=== PATIENT | female | born 1985 | race Caucasian/White ===

== ENCOUNTER 2016-10-13 04:21 | Inpatient (IN) | payer OTHER ==
[~2016-10-13] VITALS: Ht 162.6 cm; Wt 68.0 kg
[~2016-10-13 04:21] MED LIST: BIRTH CONTROL; LEVO50TA PO; PREN1TAB69 PO
[2016-10-13 04:27] VITALS: BP 131/79
[2016-10-13] MEDS ORDERED: TERBUTALINE 1 MG/ML, 1ML ONE (04:36)
[2016-10-13] MEDS ORDERED: LACTATED RINGERS 1,000 ML IV SCH ×2 (04:37→07:00)
[2016-10-13] MEDS ORDERED: TERBUTALINE 1 MG/ML, 1ML SQ ONE (05:00)
[2016-10-13 07:34] LABS: PATH.CAST-FLAG NOT PRESENT; SPERM-FLAG NOT PRESENT; SRC-FLAG NOT PRESENT; XTAL-FLAG NOT PRESENT; YLC-FLAG NOT PRESENT
[2016-10-13 07:45] VITALS: BP 110/63
[2016-10-13] MEDS ORDERED: NIFE10CA2 PO (07:50)
[2016-10-13] MEDS ORDERED: MAGNESIUM SULF. PMX 20GM/500ML 500 ML IV ONE ×3 (08:29→23:17)
[2016-10-13] MEDS ORDERED: BETAMETHASONE 6 MG/ML, 5ML IM ONE (08:29)
[2016-10-13] MEDS ORDERED: MAGNESIUM SULFATE PMX 4GM/100M 100 ML IVPB ONE (08:30)
[2016-10-13] MEDS: AMPICILLIN 2 GM in SODIUM CHLORIDE 0.9% 100 ML IV SCH ×3 (08:43→21:21)
[2016-10-13] MEDS ORDERED: AMPICILLIN 2 GM IVPB SCH (09:00)
[2016-10-13] MEDS ORDERED: INDOMETHACIN 50 MG CAPSULE PO ONE (09:00)
[2016-10-13] MEDS: MAGNESIUM SULF. PMX 20GM/500ML 500 ML IV SCH ×3 (09:09→23:20)
[2016-10-13] MEDS: BETAMETHASONE 6 MG/ML, 5ML IM SCH (09:17)
[2016-10-13] MEDS ORDERED: CALCIUM GLUCONATE 4.6 MEQ/10 ML IV PRN (14:00)
[2016-10-13] MEDS: INDOMETHACIN 25 MG CAPSULE PO SCH ×2 (14:51→21:21)
[2016-10-13] MEDS ORDERED: DOCUSATE 100 MG CAPSULE ONE (20:23)
[2016-10-13] MEDS: DOCUSATE 100 MG CAPSULE PO SCH (21:00)
[2016-10-14] MEDS: INDOMETHACIN 25 MG CAPSULE PO SCH ×4 (02:54→21:07)
[2016-10-14] MEDS: AMPICILLIN 2 GM in SODIUM CHLORIDE 0.9% 100 ML IV SCH (02:54)
[2016-10-14] MEDS: LEVOTHYROXINE 50 MCG TABLET PO SCH (06:43)
[2016-10-14 07:14] VITALS: BP 121/72
[2016-10-14] MEDS ORDERED: MAGNESIUM SULF. PMX 20GM/500ML 500 ML IV SCH (08:14)
[2016-10-14] MEDS ORDERED: PRENATAL VIT/IRON/FA 1 EACH TABLET ONE (08:45)
[2016-10-14] MEDS: DOCUSATE 100 MG CAPSULE PO SCH ×2 (08:49→21:07)
[2016-10-14] MEDS: PRENATAL VIT/IRON/FA 1 EACH TABLET PO SCH (08:49)
[2016-10-14] MEDS: BETAMETHASONE 6 MG/ML, 5ML IM SCH (08:50)
[2016-10-14] MEDS: LACTATED RINGERS 1,000 ML IV SCH (08:51)
[2016-10-14] MEDS: CEFAZOLIN PMX 2GM/50ML 50 ML IV SCH ×2 (09:52→17:03)
[2016-10-14] MEDS ORDERED: MAGNESIUM SULF. PMX 20GM/500ML 500 ML IV ONE (12:55)
[2016-10-14] MEDS: MAGNESIUM SULF. PMX 20GM/500ML 500 ML IV SCH (14:06)
[2016-10-14 20:01] VITALS: BP 117/65
[2016-10-14] MEDS ORDERED: DOCUSATE 100 MG CAPSULE ONE (21:05)
[2016-10-15] MEDS: LACTATED RINGERS 1,000 ML IV SCH (00:01)
[2016-10-15] MEDS: CEFAZOLIN PMX 2GM/50ML 50 ML IV SCH ×3 (00:45→16:25)
[2016-10-15] MEDS: INDOMETHACIN 25 MG CAPSULE PO SCH ×2 (03:01→08:26)
[2016-10-15] MEDS ORDERED: MAGNESIUM SULFATE PMX 2GM/50ML 50 ML ONE (03:41)
[2016-10-15] MEDS ORDERED: MAGNESIUM SULF. PMX 20GM/500ML 500 ML IV ONE ×2 (03:42→17:14)
[2016-10-15] MEDS: MAGNESIUM SULF. PMX 20GM/500ML 500 ML IV SCH ×2 (03:55→17:17)
[2016-10-15] MEDS: LEVOTHYROXINE 50 MCG TABLET PO SCH (06:02)
[2016-10-15] MEDS ORDERED: PRENATAL VIT/IRON/FA 1 EACH TABLET ONE (08:24)
[2016-10-15] MEDS ORDERED: DOCUSATE 100 MG CAPSULE ONE ×2 (08:24→21:21)
[2016-10-15] MEDS: DOCUSATE 100 MG CAPSULE PO SCH ×2 (08:26→21:23)
[2016-10-15] MEDS: PRENATAL VIT/IRON/FA 1 EACH TABLET PO SCH (08:26)
[2016-10-15 08:33] VITALS: BP 106/68
[2016-10-15 14:56] VITALS: BP 99/61
[2016-10-15] MEDS ORDERED: CALCIUM CARBONATE 500 MG TAB.CHEW ONE (15:05)
[2016-10-15] MEDS ORDERED: CALCIUM CARBONATE 500 MG TAB.CHEW PO PRN (15:30)
[2016-10-15 19:19] VITALS: BP 100/57
[2016-10-16] MEDS: CEFAZOLIN PMX 2GM/50ML 50 ML IV SCH ×3 (00:56→16:50)
[2016-10-16] MEDS ORDERED: TERBUTALINE 1 MG/ML, 1ML ONE (03:14)
[2016-10-16] MEDS ORDERED: TERBUTALINE 1 MG/ML, 1ML SQ ONE (03:30)
[2016-10-16] MEDS ORDERED: MAGNESIUM SULF. PMX 20GM/500ML 500 ML IV ONE ×3 (05:07→23:16)
[2016-10-16] MEDS: LACTATED RINGERS 1,000 ML IV SCH (05:10)
[2016-10-16] MEDS: LEVOTHYROXINE 50 MCG TABLET PO SCH (06:35)
[2016-10-16] MEDS ORDERED: MAGNESIUM SULF. PMX 20GM/500ML 500 ML IV SCH (08:14)
[2016-10-16] MEDS ORDERED: PRENATAL VIT/IRON/FA 1 EACH TABLET ONE (08:26)
[2016-10-16] MEDS ORDERED: DOCUSATE 100 MG CAPSULE ONE (08:26)
[2016-10-16] MEDS ORDERED: KETOROLAC 30 MG/1 ML ONE (08:49)
[2016-10-16] MEDS: PRENATAL VIT/IRON/FA 1 EACH TABLET PO SCH (08:53)
[2016-10-16] MEDS: DOCUSATE 100 MG CAPSULE PO SCH (08:53)
[2016-10-16] MEDS: POLYETHYLENE GLYCOL 17 GM PACKET PO SCH ×2 (08:56→16:50)
[2016-10-16] MEDS ORDERED: KETOROLAC 30 MG/1 ML IM ONE (09:00)
[2016-10-16] MEDS ORDERED: SODIUM CHLORIDE NASAL SPRAY 45ML BOTTLE NAS PRN (13:00)
[2016-10-16] MEDS ORDERED: GLYCERIN PEDIATRIC SUPP PR PRN (17:30)
[2016-10-16] MEDS: FAMOTIDINE 20 MG TABLET PO SCH (18:41)
[2016-10-16] MEDS ORDERED: GLYCERIN ADULT SUPP PR PRN (19:00)
[2016-10-16] MEDS: SENNOSIDES 8.6 MG TABLET PO SCH (21:00)
[2016-10-16] MEDS ORDERED: ZOLPIDEM 5MG TABLET ONE ×2 (22:47→23:22)
[2016-10-16] MEDS: ZOLPIDEM 5MG TABLET PO PRN ×2 (22:49→23:22)
[2016-10-16] MEDS: MAGNESIUM SULF. PMX 20GM/500ML 500 ML IV SCH (23:19)
[2016-10-17] MEDS: CEFAZOLIN PMX 2GM/50ML 50 ML IV SCH ×3 (01:05→16:58)
[2016-10-17] MEDS: LACTATED RINGERS 1,000 ML IV SCH ×2 (01:05→12:15)
[2016-10-17] MEDS: LEVOTHYROXINE 50 MCG TABLET PO SCH (06:11)
[2016-10-17 07:53] VITALS: BP 114/67
[2016-10-17] MEDS ORDERED: MAGNESIUM SULF. PMX 20GM/500ML 500 ML IV SCH ×2 (08:14)
[2016-10-17] MEDS: SENNOSIDES 8.6 MG TABLET PO SCH ×2 (09:00→21:00)
[2016-10-17] MEDS: POLYETHYLENE GLYCOL 17 GM PACKET PO SCH (09:00)
[2016-10-17] MEDS: PRENATAL VIT/IRON/FA 1 EACH TABLET PO SCH (09:00)
[2016-10-17] MEDS ORDERED: MAGNESIUM SULF. PMX 20GM/500ML 500 ML IV ONE ×2 (09:40→09:57)
[2016-10-17] MEDS: MAGNESIUM SULF. PMX 20GM/500ML 500 ML IV SCH (09:51)
[2016-10-17] MEDS ORDERED: OXYTOCIN 30U/ 0.9% NaCL 500ML 500 ML ONE (11:55)
[2016-10-17] MEDS ORDERED: MISOPROSTOL 200 MCG TABLET ONE (12:47)
[2016-10-17] MEDS ORDERED: DOCUSATE 100 MG CAPSULE PO PRN (13:00)
[2016-10-17] MEDS ORDERED: MISOPROSTOL 200 MCG TABLET PR PRN (13:00)
[2016-10-17] MEDS ORDERED: OXYcodone/APAP 5/325MG TABLET PO PRN ×2 (13:00)
[2016-10-17] MEDS ORDERED: METHYLERGONOVINE 0.2 MG/ML IM PRN (13:00)
[2016-10-17] MEDS ORDERED: BISACODYL 10 MG SUPP PR PRN (13:00)
[2016-10-17] MEDS ORDERED: ONDANSETRON 2MG/ML, 2ML IV PRN (13:00)
[2016-10-17] MEDS ORDERED: METOCLOPRAMIDE 5 MG/ML, 2ML IV PRN (13:00)
[2016-10-17] MEDS ORDERED: ACETAMINOPHEN 325 MG TABLET PO PRN (13:00)
[2016-10-17] MEDS: OXYTOCIN 30U/ 0.9% NaCL 500ML 500 ML IV SCH ×2 (13:27→23:00)
[2016-10-17] MEDS ORDERED: IBUPROFEN 600 MG TABLET ONE (13:40)
[2016-10-17] MEDS: IBUPROFEN 600 MG TABLET PO PRN (13:41)
[2016-10-17 16:31] VITALS: BP 128/72
[2016-10-17 20:19] VITALS: BP 118/71
[2016-10-17] MEDS: FAMOTIDINE 20 MG TABLET PO SCH (21:47)
[2016-10-18] VITALS: BP 123/63
[2016-10-18 03:48] VITALS: BP 111/68
[2016-10-18] MEDS: OXYTOCIN 30U/ 0.9% NaCL 500ML 500 ML IV SCH (06:08)
[2016-10-18] MEDS: LEVOTHYROXINE 50 MCG TABLET PO SCH (06:13)
[2016-10-18 07:22] VITALS: BP 121/80
[2016-10-18] MEDS ORDERED: MAGNESIUM SULF. PMX 20GM/500ML 500 ML IV SCH (08:14)
[2016-10-18] MEDS: PRENATAL VIT/IRON/FA 1 EACH TABLET PO SCH ×2 (09:00→10:03)
[2016-10-18] MEDS: IBUPROFEN 600 MG TABLET PO PRN ×2 (10:03→22:09)
[2016-10-18] MEDS: SENNOSIDES 8.6 MG TABLET PO SCH ×2 (10:03→21:00)
[2016-10-18] MEDS: LACTATED RINGERS 1,000 ML IV SCH (11:00)
[2016-10-18 11:26] VITALS: BP 135/79
[2016-10-18 19:01] VITALS: BP 134/86
[2016-10-18] MEDS: FAMOTIDINE 20 MG TABLET PO SCH (22:09)
[2016-10-19] MEDS: LEVOTHYROXINE 50 MCG TABLET PO SCH (06:09)
[2016-10-19 06:51] VITALS: BP 117/73
[2016-10-19] MEDS: LACTATED RINGERS 1,000 ML IV SCH (07:00)
[2016-10-19] MEDS: PRENATAL VIT/IRON/FA 1 EACH TABLET PO SCH ×2 (07:37→08:39)
[2016-10-19] MEDS: IBUPROFEN 600 MG TABLET PO PRN (08:39)
[2016-10-19] MEDS: SENNOSIDES 8.6 MG TABLET PO SCH (08:40)
[2016-10-19] MEDS ORDERED: IBUP-1222 PO (09:40)
== END 2016-10-19 12:57 | disposition home or self-care (01) | DRG 775 ==
LOC: LDOP 04:21 → LDIP 05:30 → OBSVTOIN 08:09 → LDIP 10-17 10:59 → 2NW 10-17 16:23
PROVIDERS: ADMIT Obstetrics & Gynecology; ATTEND Obstetrics & Gynecology
PROC: 0T9B70Z Drainage of Bladder with Drainage Device, Via Natural or Artificial Opening (ICD-10-PCS; 2016-10-13)
PROC: 10E0XZZ Delivery of Products of Conception, External Approach (ICD-10-PCS; principal; 2016-10-17)
PROC: 10907ZC Drainage of Amniotic Fluid, Therapeutic from Products of Conception, Via Natural or Artificial Opening (ICD-10-PCS; 2016-10-17)
DX: O60.12X0 Preterm labor second trimester with preterm delivery second trimester, not applicable or unspecified (principal); E03.9 Hypothyroidism, unspecified; O32.1XX0 Maternal care for breech presentation, not applicable or unspecified; O99.284 Endocrine, nutritional and metabolic diseases complicating childbirth; O77.0 Labor and delivery complicated by meconium in amniotic fluid; E28.2 Polycystic ovarian syndrome; Z37.0 Single live birth; Z3A.23 23 weeks gestation of pregnancy
CPT/HCPCS: 36415; 76805; 81001; 82803; 83735; 85025; 86850; 86900; 87086; 88305; G0378; J0290; J0690; J0702; J1885; J2590; J3105; J3475; J7120